=== PATIENT | female | born 1980 | race Caucasian/White ===

== ENCOUNTER → 2017-02-02 12:49 | Outpatient (CLI) | payer SELFPAY | END | disposition home or self-care (01) | LOC: D.NM 12:49 | DX: R10.11 Right upper quadrant pain (principal); R93.5 Abnormal findings on diagnostic imaging of other abdominal regions, including retroperitoneum ==

== ENCOUNTER 2017-06-29 05:10 | Day surgery (SDC) | payer MEDICAID ==
[2017-06-26 11:23] LABS: HEMATOCRIT 41.9 % (36.0-48.0); MCH 29.7 pg (26.0-34.0); MCHC 33.4 g/dL (31.0-37.0); MEAN PLATELET VOLUME 10.3 fL (7.4-10.4); RBC 4.71 10x6/uL (4.00-5.40); RDW 12.3 % (11.5-14.5); WBC 8.4 10x3/uL (4.8-10.8)
[~2017-06-29] VITALS: Ht 172.7 cm; Wt 96.6 kg
[~2017-06-29 05:10] MED LIST: PROVENTIL HFA6.7 GM INH
[2017-06-29 06:30] LABS: HCG URINE NEGATIVE (NEGATIVE)
[2017-06-29 06:31] VITALS: BP 138/80; Ht 172.7 cm; Wt 96.6 kg
[2017-06-29] MEDS ORDERED: HYDROCODON-ACE1 EAC7 PO (08:50)
== END 2017-06-29 11:50 | disposition home or self-care (01) ==
LOC: D.OPS 05:10 → D.PAN 08:00 → D.OPS 11:50
PROVIDERS: Anesthesiology; Surgery
DX: K82.8 Other specified diseases of gallbladder (principal); Z01.812 Encounter for preprocedural laboratory examination

== ENCOUNTER → 2017-08-15 19:17 | Outpatient (CLI) | payer MEDICAID | END | disposition home or self-care (01) | LOC: D.SLEEP 19:17 | DX: G47.33 Obstructive sleep apnea (adult) (pediatric) (principal) ==

== ENCOUNTER → 2017-10-09 13:02 | Outpatient (CLI) | payer OTHER ==
[2017-06-29 06:31] VITALS: BMI 32.4
[~2017-10-09 13:02] MED LIST changes: +HYDROCODON-ACE1 EAC7 PO
== END | disposition home or self-care (01) ==
LOC: D.LAB 13:00 → D.RT 14:00
DX: J45.909 Unspecified asthma, uncomplicated (principal)

== ENCOUNTER → 2017-12-24 08:25 | Outpatient (CLI) | payer OTHER ==
[2017-06-29 06:31] VITALS: BMI 32.4
== END | disposition home or self-care (01) ==
LOC: D.MRI 08:25
DX: R93.8 Abnormal findings on diagnostic imaging of other specified body structures (principal)

== ENCOUNTER → 2018-01-25 16:27 | Outpatient (CLI) | payer OTHER ==
[2017-06-29 06:31] VITALS: BMI 32.4
== END | disposition home or self-care (01) ==
LOC: D.LABREF 16:27
DX: J45.909 Unspecified asthma, uncomplicated (principal)

== ENCOUNTER → 2018-06-04 09:43 | Outpatient (CLI) | payer OTHER ==
[2017-06-29 06:31] VITALS: BMI 32.4
== END | disposition home or self-care (01) ==
LOC: D.MRI 09:43
DX: K76.9 Liver disease, unspecified (principal)

== ENCOUNTER 2018-07-01 06:00 | Day surgery (SDC) | payer OTHER ==
[2018-06-28 09:46] LABS: HEMATOCRIT 42.5 % (36.0-48.0); HEMOGLOBIN 14.6 g/dL (12-16); MCH 30.3 pg (26.0-34.0); MCHC 34.4 g/dL (31.0-37.0); MCV 88.2 fL (80.0-100.0); MEAN PLATELET VOLUME 10.2 fL (7.4-10.4); RBC 4.82 10x6/uL (4.00-5.40); RDW 12.4 % (11.5-14.5); WBC 6.3 10x3/uL (4.8-10.8)
[~2018-07-01] VITALS: Ht 172.7 cm; Wt 98.4 kg
[~2018-07-01 06:00] MED LIST changes: +SINGULAIR10 MG PO; +SYMBICORT 80-10.2 GM INH
[2018-07-01 06:44] VITALS: BP 113/90; Ht 172.7 cm; Wt 98.4 kg
[2018-07-01 06:56] LABS: HCG URINE NEGATIVE (NEGATIVE)
[2018-07-01] MEDS ORDERED: HYDROCODON-ACE1 EAC7 PO (08:57)
== END 2018-07-01 12:10 | disposition home or self-care (01) ==
LOC: D.OPS 06:00
PROVIDERS: Anesthesiology; Surgery
DX: K43.2 Incisional hernia without obstruction or gangrene (principal); Z01.812 Encounter for preprocedural laboratory examination

== ENCOUNTER → 2020-02-06 23:55 | Outpatient (CLI) | payer SELFPAY ==
[2018-07-01 06:44] VITALS: BMI 33.0
[2020-02-07 00:12] LABS: BASOPHILS 0.3 % (0-2); EOSINOPHILS 2.3 % (0-7); HEMATOCRIT 43.2 % (36.0-48.0); HEMOGLOBIN 14.4 g/dL (12-16); IMMATURE GRANULOCYTES 0.1 % (0-5); LYMPHOCYTES 35.3 % (15-50); MCH 30.2 pg (26.0-34.0); MCHC 33.3 g/dL (31.0-37.0); MCV 90.6 fL (80.0-100.0); MEAN PLATELET VOLUME 10.5 fL (7.4-10.4); MONOCYTES 7.5 % (2-11); NEUTROPHILS 54.5 % (40-80); PLATELET COUNT 298 10x3/uL (130-400); RBC 4.77 10x6/uL (4.00-5.40); RDW 12.5 % (11.5-14.5); WBC 7.1 10x3/uL (4.8-10.8)
== END | disposition home or self-care (01) ==
LOC: D.LABREF 23:55
PROVIDERS: ATTEND Internal Medicine Pulmonary Disease
DX: J45.909 Unspecified asthma, uncomplicated (principal)